=== PATIENT | female | born 1980 | race Caucasian/White ===

== ENCOUNTER → 2017-10-25 | Emergency (ER) | payer MEDICAID ==
[2017-10-25 22:50] LABS: ADD MAN DIFF? NO
[2017-10-25 22:54] LABS: BASOPHIL # 0.1 10^3/ul (0.0-0.1); BASOPHILS % 0.6 % (0.0-2.0); EOSINOPHILS # 0.1 10^3/ul (0.0-0.5); EOSINOPHILS % 1.3 % (0.0-7.0); HEMATOCRIT 38.2 % (37.0-47.0); HEMOGLOBIN 13.6 g/dl (12.0-16.0); LYMPHOCYTES # 2.8 10^3/ul (0.8-2.9); LYMPHOCYTES % 29.6 % (15.0-51.0); MEAN CORPUSCULAR HEMOGLOBIN 30.5 pg (29.0-33.0); MEAN CORPUSCULAR HGB CONC 35.6 g/dl (32.0-37.0); MEAN CORPUSCULAR VOLUME 85.7 fl (82.0-101.0); MEAN PLATELET VOLUME 10.3 fl (7.4-10.4); MONOCYTE # 0.7 10^3/ul (0.3-0.9); MONOCYTES % 6.9 % (0.0-11.0); NEUTROPHIL # 5.8 10^3/ul (1.6-7.5); NEUTROPHILS % 61.3 % (39.0-77.0); PLATELET COUNT 268 10^3/UL (140-415); RED BLOOD COUNT 4.46 10^6/ul (4.20-5.40); RED CELL DISTRIBUTION WIDTH 12.1 % (11.5-14.5)
[2017-10-25 22:54] LABS: WHITE BLOOD COUNT 9.4 10^3/ul (4.8-10.8)
[2017-10-25 23:24] LABS: ADD UMIC YES; UR ASCORBIC ACID NEGATIVE (NEGATIVE); UR BACTERIA FEW /HPF (NONE SEEN); UR BILIRUBIN (Dip) NEGATIVE (NEGATIVE); UR BLOOD (Dip) 2+ mg/dL (NEGATIVE); UR CLARITY CLEAR (CLEAR); UR COLOR STRAW (YELLOW); UR GLUCOSE (Dip) NEGATIVE (NEGATIVE); UR KETONES (Dip) NEGATIVE (NEGATIVE); UR LEUKOCYTE ESTERASE (Dip) NEGATIVE Leu/ul (NEGATIVE); UR NITRITE (Dip) NEGATIVE (NEGATIVE); UR RBC 0 /HPF (0-5); UR SPECIFIC GRAVITY (Dip) 1.005 (1.003-1.030); UR SQUAMOUS EPITHELIAL CELL FEW /HPF (FEW); UR TOTAL PROTEIN (Dip) NEGATIVE (NEGATIVE); UR UROBILINOGEN (Dip) NEGATIVE (NEGATIVE); UR WBC 1 /HPF (0-5)
== END | disposition home or self-care (01) ==
LOC: FTE 21:20
DX: O20.9 Hemorrhage in early pregnancy, unspecified (principal); R10.2 Pelvic and perineal pain; Z3A.09 9 weeks gestation of pregnancy
CPT/HCPCS: 36415; 76801; 81001; 84702; 85025; 86900; 86901; 99284-25

== ENCOUNTER 2018-05-23 07:22 | Inpatient (IN) | payer MEDICAID ==
[2018-05-23] MEDS ORDERED: BUTORPHANOL 2 MG INJ (08:10)
[2018-05-23] MEDS: LACTATED RINGER'S 1,000 ML IV (08:24)
[2018-05-23] MEDS: AMPICILLIN 2 GM/NS (PMX) 100 ML IV (08:24)
[2018-05-23] MEDS ORDERED: OXYTOCIN 30 UNITS/LR 500 ML IV ×2 (08:30→11:00)
[2018-05-23] MEDS ORDERED: MISOPROSTOL 200 MCG TAB PR ×2 (08:30→11:00)
[2018-05-23] MEDS ORDERED: BUTORPHANOL 2 MG INJ IV (08:30)
[2018-05-23] MEDS ORDERED: LIDOCAINE 1% (MPF) 30 ML INJ INJ (08:30)
[2018-05-23] MEDS ORDERED: CARBOPROST 250 MCG INJ IM ×2 (08:30→11:00)
[2018-05-23 08:32] LABS: ADD MAN DIFF? NO
[2018-05-23 08:36] LABS: WHITE BLOOD COUNT 13.6 10^3/ul (4.8-10.8)
[2018-05-23 08:36] LABS: BASOPHILS % 0.2 % (0.0-2.0); EOSINOPHILS % 0.1 % (0.0-7.0); HEMATOCRIT 39.8 % (37.0-47.0); LYMPHOCYTES # 1.5 10^3/ul (0.8-2.9); LYMPHOCYTES % 11.2 % (15.0-51.0); MEAN CORPUSCULAR HEMOGLOBIN 31.1 pg (29.0-33.0); MEAN CORPUSCULAR HGB CONC 35.2 g/dl (32.0-37.0); MEAN CORPUSCULAR VOLUME 88.4 fl (82.0-101.0); MEAN PLATELET VOLUME 10.7 fl (7.4-10.4); MONOCYTE # 0.7 10^3/ul (0.3-0.9); MONOCYTES % 4.9 % (0.0-11.0); NEUTROPHIL # 11.3 10^3/ul (1.6-7.5); NEUTROPHILS % 83.2 % (39.0-77.0); PLATELET COUNT 191 10^3/UL (140-415); RED CELL DISTRIBUTION WIDTH 12.7 % (11.5-14.5)
[2018-05-23] MEDS ORDERED: LIDOCAINE 1% (MPF) 30 ML INJ (08:38)
[2018-05-23 08:55] LABS: INR 0.91; PROTIME 12.3 Sec (11.9-14.9)
[2018-05-23 08:56] LABS: PARTIAL THROMBOPLASTIN TIME 26.3 Sec (23.0-35.0)
[2018-05-23] MEDS: METHYLERGONOVINE 0.2 MG INJ IM (09:12)
[2018-05-23] MEDS: OXYTOCIN 30 UNITS/LR 500 ML IV ×3 (09:13→10:51)
[2018-05-23] MEDS: IBUPROFEN 600 MG TAB PO ×4 (10:03→23:52)
[2018-05-23] MEDS ORDERED: ACETAMINOPHEN 325 MG TAB PO (11:00)
[2018-05-23] MEDS ORDERED: NACL 0.9% 3 ML SYG IV (11:00)
[2018-05-23] MEDS ORDERED: ZOLPIDEM 5 MG TAB PO (11:00)
[2018-05-23] MEDS ORDERED: DIPHENHYDRAMINE 25 MG CAP PO (11:00)
[2018-05-23] MEDS ORDERED: METHYLERGONOVINE 0.2 MG TAB PO (11:00)
[2018-05-23] MEDS ORDERED: HYDROCODONE/APAP (5/325) TAB PO (11:00)
[2018-05-23] MEDS ORDERED: METHYLERGONOVINE 0.2 MG INJ IM (11:00)
[2018-05-23] MEDS ORDERED: ONDANSETRON 4 MG INJ IV (11:00)
[2018-05-23 11:39] LABS: HEMATOCRIT 36.2 % (37.0-47.0); HEMOGLOBIN 12.7 g/dl (12.0-16.0)
[2018-05-23] MEDS: LANOLIN 7 GM TUBE TOP (11:57)
[2018-05-23] MEDS: WITCH HAZEL/GLYCERIN PAD PR (11:57)
[2018-05-23] MEDS ORDERED: AMPICILLIN 1 GM/NS (PMX) 50 ML IV (12:00)
[2018-05-23 20:02] LABS: RAPID PLASMA REAGIN NONREACTIVE (NR)
[2018-05-23] MEDS: SENNA/DOCUSATE NA (8.6MG/50MG) TAB PO (20:56)
[2018-05-24] MEDS: IBUPROFEN 600 MG TAB PO ×4 (05:34→23:47)
[2018-05-24] MEDS: SENNA/DOCUSATE NA (8.6MG/50MG) TAB PO ×2 (09:14→21:00)
[2018-05-24 12:31] LABS: BASOPHILS % 0.3 % (0.0-2.0); EOSINOPHILS # 0.1 10^3/ul (0.0-0.5); EOSINOPHILS % 0.8 % (0.0-7.0); HEMATOCRIT 34.7 % (37.0-47.0); LYMPHOCYTES # 1.9 10^3/ul (0.8-2.9); LYMPHOCYTES % 18.7 % (15.0-51.0); MEAN CORPUSCULAR HEMOGLOBIN 31.3 pg (29.0-33.0); MEAN CORPUSCULAR HGB CONC 34.6 g/dl (32.0-37.0); MEAN CORPUSCULAR VOLUME 90.6 fl (82.0-101.0); MEAN PLATELET VOLUME 10.8 fl (7.4-10.4); MONOCYTE # 0.6 10^3/ul (0.3-0.9); MONOCYTES % 5.7 % (0.0-11.0); NEUTROPHIL # 7.6 10^3/ul (1.6-7.5); NEUTROPHILS % 73.5 % (39.0-77.0); PLATELET COUNT 201 10^3/UL (140-415); RED BLOOD COUNT 3.83 10^6/ul (4.20-5.40); RED CELL DISTRIBUTION WIDTH 13.2 % (11.5-14.5)
[2018-05-24 12:31] LABS: WHITE BLOOD COUNT 10.4 10^3/ul (4.8-10.8)
[2018-05-24 12:32] LABS: ADD MAN DIFF? NO
[2018-05-25] MEDS: IBUPROFEN 600 MG TAB PO (06:12)
[2018-05-25] MEDS: SENNA/DOCUSATE NA (8.6MG/50MG) TAB PO (09:00)
[2018-05-25] MEDS: DIPHTH/TET/ACEL PERTUSS (ADULT) 0.5 ML VIAL IM* (09:54)
[2018-05-25] MEDS: VARICELLA VACCINE LIVE/PF 1,350 UNIT/0.5 ML ML SC* (09:55)
[2018-05-25] MEDS: MEASLES,MUMPS,RUBELLA VACCINE INJ SC* (09:55)
== END 2018-05-25 12:45 | disposition home or self-care (01) | DRG 807 ==
LOC: OBT 07:22 → L-D 07:22 → OBT 07:52 → L-D 07:41 → PP1 10:34
PROVIDERS: Obstetrics & Gynecology
PROC: 10E0XZZ Delivery of Products of Conception, External Approach (ICD-10-PCS; principal; 2018-05-23)
PROC: 0KQM0ZZ Repair Perineum Muscle, Open Approach (ICD-10-PCS; 2018-05-23)
DX: O62.3 Precipitate labor (principal); Z37.0 Single live birth; O70.1 Second degree perineal laceration during delivery; Z3A.39 39 weeks gestation of pregnancy
CPT/HCPCS: 85014; 85018; 85025; 85610; 85730; 86592; 86850; 86900; 86901; 90716; 99464